=== PATIENT | male | born 1990 | race Caucasian/White ===

== ENCOUNTER 2024-07-15 18:16 | Emergency (ER) | payer BC, OTHER ==
[2024-07-15] MEDS ORDERED: Bacitracin 1 PK ONE ×2 (20:07→20:08)
== END 2024-07-15 20:42 | disposition home or self-care (01) ==
LOC: CSHERS 18:16
DX: T22.10XA Burn of first degree of shoulder and upper limb, except wrist and hand, unspecified site, initial encounter (principal); Z55.6 Problems related to health literacy; V89.2XXA Person injured in unspecified motor-vehicle accident, traffic, initial encounter
CPT/HCPCS: 72125